=== PATIENT | female | born 1970 | race American Indian/Alaskan Native ===

== ENCOUNTER 2017-06-01 14:05 | Emergency (ER) | payer BC ==
--- NOTE | 2017-06-01 14:57 | Emergency Department Report ---
Chief Complaint: Fall Stated Complaint: FELL/PAIN IN ABD AREA/N/V Time Seen by Provider: 06/01/17 14:55 - HPI History of Present Illness: PT states she fell last night when roller skating, + left side pain today - ROS Review of Systems: + nausea + abd pain - Exam Physical Exam: + LUQ tenderness MSE screening note: Focused history and physical exam performed. Due to findings the following was ordered: xr, labs ED Disposition for MSE Condition: Stable
[2017-06-01 15:47] LABS: Basophils % (Auto) 0.9 % (0.0-1.8); Eosinophils % (Auto) 2.1 % (0.0-4.3); Hematocrit 42.6 % (30.3-42.9); Mean Corpuscular HGB Conc 33 % (30-34); Mean Corpuscular Hemoglobin 33 pg (28-32); Mean Corpuscular Volume 100 fl (79-97); Platelet Count 201 K/mm3 (140-440); Red Blood Count 4.25 M/mm3 (3.65-5.03); White Blood Count 7.6 K/mm3 (4.5-11.0)
[2017-06-01 15:59] LABS: Alanine Aminotransferase 53 units/L (7-56); Albumin 3.8 g/dL (3.9-5); Albumin/Globulin Ratio 0.9 %; Alkaline Phosphatase 117 units/L (35-129); Anion Gap 18 mmol/L; Blood Urea Nitrogen 11 mg/dL (7-17); Calcium 9.1 mg/dL (8.4-10.2); Carbon Dioxide 24 mmol/L (22-30); Glucose 89 mg/dL (65-100); Lipase 25 units/L (13-60); Potassium 3.8 mmol/L (3.6-5.0); Sodium 137 mmol/L (137-145); Total Protein 8.2 g/dL (6.3-8.2)
[2017-06-01 16:26] LABS: Bacteria,Urine 1+ /HPF (Negative); Bilirubin,Urine NEG (Negative); Blood,Urine SM (Negative); Ketones,Urine 20 mg/dL (Negative); Leukocyte Esterase,Urine NEG (Negative); Mucus,Urine 3+ /HPF; Nitrite,Urine NEG (Negative); Urobilinogen,Urine < 2.0 mg/dL (<2.0)
--- NOTE | 2017-06-01 16:34 | Emergency Department Report ---
ED Fall HPI - General Chief Complaint: Fall Stated Complaint: FELL/PAIN IN ABD AREA/N/V Time Seen by Provider: 06/01/17 14:55 Source: patient Mode of arrival: Ambulatory - History of Present Illness Initial Comments: 46-year-old female past medical history none presents with complaint of anterior chest wall pain status post mechanical fall yesterday while roller skating. Patient complaining of anterior chest tenderness. Denies any diaphoresis denies any significant shortness of breath patient sitting calmly in examination room. States that yesterday while roller skating outside her home with her daughter she fell forward and fell onto her daughter's skate which hit her directly below the left breast. Patient states she has small bruise near her ribs and anterior left chest, denies any loss of consciousness denies sustaining any other injuries. MD Complaint: fall Onset/Timin -: days(s) Fall From: standing Fall Witnessed: yes, by family Place Fall Occurred: home Loss of Consciousness: none Prolonged Down Time?: no Symptoms Prior to Fall: none Location: chest Severity: mild Severity scale (0 -10): 5 Quality: aching Context: tripped/slipped - Related Data Previous Rx's Medication Instructions Recorded Last Taken Type Acetaminophen/Codeine [Tylenol 1 tab PO Q6H PRN #12 tab 06/01/17 Unknown Rx /Codeine # 3 tab] Naproxen [Naprosyn TAB] 500 mg PO BID PRN #25 tablet 06/01/17 Unknown Rx Allergies Allergy/AdvReac Type Severity Reaction Status Date / Time cortisone Allergy Swelling Verified 06/01/17 14:52 ED Review of Systems ROS: Stated complaint: FELL/PAIN IN ABD AREA/N/V Other details as noted in HPI Constitutional: denies: chills, fever Eyes: denies: eye pain, eye discharge, vision change ENT: denies: ear pain, throat pain Respiratory: denies: cough, shortness of breath, wheezing Cardiovascular: denies: chest pain, palpitations Endocrine: no symptoms reported Gastrointestinal: denies: abdominal pain, nausea, diarrhea Genitourinary: denies: urgency, dysuria, discharge Musculoskeletal: denies: back pain, joint swelling, arthralgia Skin: denies: rash, lesions Neurological: denies: headache, weakness, paresthesias Psychiatric: denies: anxiety, depression Hematological/Lymphatic: denies: easy bleeding, easy bruising ED Past Medical Hx - Past Medical History Previous Medical History?: Yes Additional medical history: heart murmur - Surgical History Past Surgical History?: No - Social History Smoking Status: Never Smoker Substance Use Type: Alcohol, Non Opiate Pain, Prescribed - Medications Home Medications: Home Medications Medication Instructions Recorded Confirmed Last Taken Type Acetaminophen/Codeine [Tylenol 1 tab PO Q6H PRN #12 tab 06/01/17 Unknown Rx /Codeine # 3 tab] Naproxen [Naprosyn TAB] 500 mg PO BID PRN #25 tablet 06/01/17 Unknown Rx ED Physical Exam - General Limitations: No Limitations General appearance: alert, in no apparent distress - Head Head exam: Present: atraumatic, normocephalic - Eye Eye exam: Present: normal appearance, PERRL, EOMI - ENT ENT exam: Present: mucous membranes moist - Neck Neck exam: Present: normal inspection, full ROM - Respiratory Respiratory exam: Present: normal lung sounds bilaterally, chest wall tenderness (reproducible chest wall tenderness left anterior axillary line). Absent: respiratory distress - Cardiovascular Cardiovascular Exam: Present: regular rate, normal rhythm. Absent: systolic murmur, diastolic murmur, rubs, gallop - GI/Abdominal GI/Abdominal exam: Present: soft, normal bowel sounds - Extremities Exam Extremities exam: Present: normal inspection - Back Exam Back exam: Present: normal inspection - Neurological Exam Neurological exam: Present: alert, oriented X3, CN II-XII intact, normal gait - Psychiatric Psychiatric exam: Present: normal affect, normal mood - Skin Skin exam: Present: warm, dry, intact, normal color. Absent: rash ED Course Vital Signs 06/01/17 06/01/17 14:52 19:36 Temperature 98.8 F Pulse Rate 70 63 Respiratory 20 18 Rate Blood Pressure 139/91 Blood Pressure 164/82 [Right] O2 Sat by Pulse 100 100 Oximetry ED Medical Decision Making - Lab Data Result diagrams: 06/01/17 15:24 06/01/17 15:24 - Medical Decision Making A/P: Anterior chest wall tenderness, costochondritis 1-x-ray chest and CT chest showed no rib fractures, bedside ultrasound/FAST shows no perisplenic fluid left perirenal region unremarkable 2-Motrin and Tylenol 3 when necessary 3-follow-up with primary care doctor Critical care attestation.: If time is entered above; I have spent that time in minutes in the direct care of this critically ill patient, excluding procedure time. ED Disposition Clinical Impression: Anterior chest wall pain Disposition: TO HOME OR SELFCARE Is pt being admited?: No Does the pt Need Aspirin: No Condition: Stable Instructions: Chest Pain (ED), Costochondritis (ED), Musculoskeletal Pain (ED) Prescriptions: Acetaminophen/Codeine [Tylenol /Codeine # 3 tab] 1 tab PO Q6H PRN #12 tab PRN Reason: Pain Naproxen [Naprosyn TAB] 500 mg PO BID PRN #25 tablet PRN Reason: Pain Referrals: [facility] [Provider Group] - 3-5 Days [facility] [place] [facility]Outside] - 3-5 Days Forms: Work/School Release Form(ED)
[2017-06-01] MEDS: MOTRIN PO ONE (17:43)
--- NOTE | 2017-06-01 17:52 | XRay Report ---
FINAL REPORT PROCEDURE: Left ribs with chest. TECHNIQUE: PA chest, AP and oblique views of the left ribs. HISTORY: s/p fall rib fracture left lower rib pain COMPARISON: No prior studies are available for comparison. FINDINGS: The heart and mediastinum appear normal. The lungs are clear and well expanded. There are no pleural effusions. The soft tissues are unremarkable. There is a severe thoracic scoliosis. The left-sided ribs appear intact. There are no definite rib fractures identified. IMPRESSION: No evidence of acute cardiopulmonary disease. No evidence of rib fracture.
--- NOTE | 2017-06-01 19:19 | Cat Scan Report ---
FINAL REPORT PROCEDURE: CT chest without contrast. TECHNIQUE: Computerized axial tomography of the chest was performed without contrast material. This study is performed without intravenous contrast and the sensitivity for pathology, including neoplasms, adenopathy, abscess, pulmonary embolism and aortic dissection, is reduced. HISTORY: Question left-sided rib fracture, left-sided chest pain. COMPARISON: No prior studies are available for comparison. TECHNICAL QUALITY: Satisfactory. FINDINGS: The trachea and central bronchi appear normal. The thoracic aorta has a normal caliber. The central pulmonary arteries have normal calibers. There is no mediastinal adenopathy. The heart size is normal. There are no pleural effusions. The lungs are clear and well expanded. There are no pulmonary contusions. There is a severe thoracic scoliosis. The thoracic skeleton appears intact. There are no rib fractures identified. IMPRESSION: Severe thoracic scoliosis. No evidence of a rib fracture.
[2017-06-01 19:37] VITALS: BP 164/82
== END 2017-06-01 20:29 | disposition home or self-care (01) ==
LOC: EDBD → ED 14:05
DX: R07.89 Other chest pain (principal); Z88.8 Allergy status to other drugs, medicaments and biological substances
CPT/HCPCS: 36415; 71250; 80053; 81001; 83690; 84703; 85025

== ENCOUNTER 2017-07-23 08:07 | Outpatient (CLI) | payer BC ==
--- NOTE | 2017-07-23 14:59 | Magnetic Resonance Report ---
MR LOWER EXTREMITY JOINT LEFT WITHOUT CONTRAST HISTORY: Left knee pain. TECHNIQUE: Multisequence, multiplanar MRI without contrast COMPARISON: None. FINDINGS: An external skin marker is placed along the anteromedial left knee. Underlying this area there is normal appearing subcutaneous tissue. Moderate joint effusion is present which extends to the suprapatellar bursa. No popliteal cyst. The medial and lateral menisci are intact. No significant degeneration or tear. The ACL, PCL, MCL, LCL complex and extensor complex are intact. No ligamentous injury is appreciated. Bone marrow signal is within normal limits. No fracture or bone lesion. There is a subtle cartilage defect suggested along the anterior surface of the distal femur within the patellofemoral space. This may represent a small cartilage fissure. This is best demonstrated on axial proton density fat sat image 18. The retropatellar cartilage is intact. The medial and lateral compartment cartilage is also unremarkable. IMPRESSION: Joint effusion. Question a small cartilage fissure along the anterior surface of the distal femur within the patellofemoral space. Please see above. No ligamentous or meniscal abnormality detected.
== END 2017-07-23 08:08 | disposition home or self-care (01) ==
LOC: MRI 08:07
PROVIDERS: ATTEND Physician Assistant Medical
DX: M25.462 Effusion, left knee (principal); M25.552 Pain in left hip
CPT/HCPCS: 73721

== ENCOUNTER 2017-11-05 07:46 | Outpatient (CLI) | payer BC ==
--- NOTE | 2017-11-05 09:51 | Ultrasound Report ---
Limited abdominal ultrasound and bilateral kidneys: Elevated LFTs and elevated serum creatinine. Imaging of the liver is echogenically unremarkable. No focal findings and no enlargement identified normal echogenicity. The gallbladder is unremarkable. No evidence of calculus and normal wall thickness. The CBD diameter is 2.5 mm. The pancreas is normal in size and contour and with normal echogenic pattern. The transverse diameter of the proximal abdominal aorta is 1.8 cm. The right renal length is 9.2 cm and the left renal length is 10 cm. The echogenicity of both kidneys is considered within normal range. No evidence of renal mass, calculus, nor hydronephrosis. The urinary bladder is partially contracted but not otherwise remarkable. Impression: 1. No hepatobiliary abnormality identified. 2. Normal renal ultrasound.
== END 2017-11-05 07:47 | disposition home or self-care (01) ==
LOC: US 07:46
PROVIDERS: ATTEND Physician Assistant Medical
DX: N28.9 Disorder of kidney and ureter, unspecified (principal); N32.89 Other specified disorders of bladder; R74.8 Abnormal levels of other serum enzymes; R79.89 Other specified abnormal findings of blood chemistry
CPT/HCPCS: 76705; 76770

== ENCOUNTER 2017-12-15 10:08 | Outpatient (CLI) | payer BC ==
--- NOTE | 2017-12-15 22:32 | XRay Report ---
FINAL REPORT PROCEDURE: XR KNEE 3V RT TECHNIQUE: Right knee, three views HISTORY: PAIN IN RIGHT KNEE COMPARISON: No prior studies are available for comparison. FINDINGS: There is no acute fracture or dislocation. There is mild osteoarthritis, with joint space narrowing and osteophyte formation. IMPRESSION: No acute fracture or dislocation
== END 2017-12-15 10:09 | disposition home or self-care (01) ==
LOC: XRAY 10:08
PROVIDERS: ATTEND Orthopaedic Surgery
DX: M17.11 Unilateral primary osteoarthritis, right knee (principal)